=== PATIENT | male | born 1945 | race Caucasian/White ===

== ENCOUNTER 2016-10-18 07:48 | Emergency (ER) | payer MEDICARE, BC ==
[~2016-10-18] VITALS: Ht 177.8 cm; Wt 95.5 kg
[~2016-10-18 07:48] MED LIST: ANTIVERT 25MG25 MG PO; ASPIRIN BUFFERED; COREG 25MG25 MG/TAB PO; GLUCOPHAGE1000 MG PO; NEXIUM 20MG20 MG PO; NIACIN125 MG PO; PLAVIX 75MG TAB75 MG PO; ZESTRIL 20MG TA20 MG PO; ZOCOR 80MG80 MG PO; ZOFRAN ODT4 MG PO
[2016-10-18 08:25] LABS: BASO % 0.8 % (0.0-2.0); EOS % 0.4 % (0-4.0); GRAN # 3.9 (1.4-6.5); GRAN % 78.5 % (42.2-75.2); HEMATOCRIT 38.5 % (42.0-52.0); HEMOGLOBIN 13.6 g/dl (13.5-18.0); LYMPH # 0.6 (1.2-3.4); LYMPH % 11.8 % (20.0-51.0); MEAN CELL VOLUME 93 fl (80.0-100.0); MEAN CORPUSCULAR HEMOGLOBIN 33 pg (27.0-31.0); MEAN CORPUSCULAR HGB CONC 35 g/dl (33.0-37.0); MEAN PLATELET VOLUME 10.5 fl (7.4-10.4); MONO # 0.4 (0.1-0.6); MONO % 8.3 % (1.7-9.3); PLATELET COUNT 106 K/mm3 (130-400); RED BLOOD COUNT 4.12 M/mm3 (4.20-5.60); REDCELL DISTRIBUTION WIDTH-CV 12.5 % (11.5-14.5); WHITE BLOOD COUNT 4.9 K/mm3 (4.8-10.8)
[2016-10-18 08:42] LABS: INFLUENZA B NEGATIVE
[2016-10-18 08:45] LABS: ADJUSTED CALCIUM 9.1 mg/dL (8.4-10.2); ALBUMIN 3.4 gm/dL (3.5-5.0); BILIRUBIN,TOTAL 0.9 mg/dL (0.0-1.0); CALCIUM 8.6 mg/dL (8.4-10.2); CREATININE, serum 1.13 mg/dL (0.66-1.25); POTASSIUM 3.9 mmol/L (3.4-5.0); TOTAL PROTEIN 6.4 gm/dL (6.4-8.2)
[2016-10-18] MEDS ORDERED: VENTOLIN0.09 MG IH (09:08)
[2016-10-18] MEDS ORDERED: TAMIFLU 75MG75 MG PO (09:08)
[2016-10-18 09:25] VITALS: BP 131/88; PULSE 101; TEMP 98.6
[2016-10-18] MEDS ORDERED: XANAX 0.5MG0.5 MG PO ×2 (10:13→10:52)
== END 2016-10-18 10:54 | disposition home or self-care (01) ==
LOC: COL.ER 07:48
PROVIDERS: Emergency Medicine
DX: J10.1 Influenza due to other identified influenza virus with other respiratory manifestations (principal); F17.210 Nicotine dependence, cigarettes, uncomplicated; I25.10 Atherosclerotic heart disease of native coronary artery without angina pectoris; Z95.5 Presence of coronary angioplasty implant and graft; Z79.02 Long term (current) use of antithrombotics/antiplatelets
CPT/HCPCS: J1100; J1885; J7030

== ENCOUNTER → 2020-08-22 | Outpatient (CLI) | payer MEDICARE, BC ==
[~2020-08-22] VITALS: Ht 177.8 cm; Wt 95.2 kg
[~2020-08-22] MED LIST changes: +ASPIRIN E.C. 8181 MG PO; +GLUMETZA500 MG PO; +LIPITOR 40MG TA40 MG PO; +PRILOSEC 20MG20 MG PO; +TAMIFLU 75MG75 MG PO; +VENTOLIN0.09 MG IH; +XANAX 0.5MG0.5 MG PO; +ZOLOFT 100MG100 MG PO
[2020-08-22 12:57] VITALS: BP 230/124; PULSE 86
--- NOTE | 2020-08-22 13:05 | NUR ---
recheck bp 211/119.
--- NOTE | 2020-08-22 13:10 | NUR ---
pt returns to holding area pt was able to proceed with scan without anesthesia. Pt states listening to the music and the updates really helped and he was able to get through the scan. Pt getting dressed. 1320 Pt out to car per ambulation. Pts notified that he was finished and his increased bp, and him not having taken his morning meds for the last two days. Pt encouraged to take meds upon arrival home.
== END ==
LOC: COL.RAD 08-21 09:00
DX: M47.812 Spondylosis without myelopathy or radiculopathy, cervical region (principal); M48.02 Spinal stenosis, cervical region

== ENCOUNTER → 2021-01-21 | Outpatient (CLI) | payer MEDICARE, BC | LOC: COL.PUL 08:07 | DX: J45.41 Moderate persistent asthma with (acute) exacerbation (principal); F17.210 Nicotine dependence, cigarettes, uncomplicated ==

== ENCOUNTER 2021-04-11 12:59 | Emergency (ER) | payer MEDICARE, BC ==
[~2021-04-11] VITALS: Ht 177.8 cm; Wt 93.2 kg
[2021-04-11 13:55] LABS: BASO # 0.1 (0.0-0.2); BASO % 0.7 % (0.0-2.0); EOS # 0.2 (0.0-0.7); EOS % 2.4 % (0-4.0); GRAN # 4.7 (1.4-6.5); GRAN % 63.2 % (42.2-75.2); HEMATOCRIT 41.8 % (42.0-52.0); HEMOGLOBIN 14.1 g/dl (13.5-18.0); LYMPH # 1.9 (1.2-3.4); LYMPH % 25.8 % (20.0-51.0); MEAN CELL VOLUME 95 fl (80.0-100.0); MEAN CORPUSCULAR HEMOGLOBIN 32 pg (27.0-31.0); MEAN CORPUSCULAR HGB CONC 34 g/dl (33.0-37.0); MEAN PLATELET VOLUME 11.2 fl (7.4-10.4); MONO # 0.6 (0.1-0.6); MONO % 7.4 % (1.7-9.3); PLATELET COUNT 192 K/mm3 (130-400); REDCELL DISTRIBUTION WIDTH-CV 13.2 % (11.5-14.5)
[2021-04-11 14:09] LABS: ALANINE AMINOTRANSFERASE 15 U/L (4-49); ALKALINE PHOSPHATASE 63 U/L (50-136); ANION GAP 10 mmol/L (7-16); AST,SGOT 20 U/L (15-37); BILIRUBIN,TOTAL 0.4 mg/dL (0.0-1.0); BLOOD UREA NITROGEN 24 mg/dL (9-20); CARBON DIOXIDE 23 mmol/L (22-30); CHLORIDE 104 mmol/L (98-107); CREATININE, serum 1.67 (0.66-1.25); GLUCOSE 161 mg/dL (74-106); POTASSIUM 4.7 mmol/L (3.4-5.0); SODIUM 138 mmol/L (137-145); TOTAL PROTEIN 7.2 gm/dL (6.4-8.2)
[2021-04-11 14:25] LABS: TROPONIN-I < 0.012 ng/mL (0.000-0.035)
[2021-04-11 15:30] VITALS: BP 104/68; PULSE 63; TEMP 97.5
== END 2021-04-11 15:55 | disposition home or self-care (01) ==
LOC: COL.ER 12:59
PROVIDERS: Emergency Medicine
DX: N17.9 Acute kidney failure, unspecified (principal); R07.9 Chest pain, unspecified; I25.10 Atherosclerotic heart disease of native coronary artery without angina pectoris; I10 Essential (primary) hypertension; E78.5 Hyperlipidemia, unspecified; E11.9 Type 2 diabetes mellitus without complications; I25.2 Old myocardial infarction; F17.210 Nicotine dependence, cigarettes, uncomplicated; Z95.5 Presence of coronary angioplasty implant and graft; Z79.899 Other long term (current) drug therapy; Z79.82 Long term (current) use of aspirin; Z79.84 Long term (current) use of oral hypoglycemic drugs

== ENCOUNTER → 2021-04-30 | Outpatient (CLI) | payer MEDICARE, BC | LOC: COL.RAD 11:57 | DX: K80.20 Calculus of gallbladder without cholecystitis without obstruction (principal); N32.89 Other specified disorders of bladder ==

== ENCOUNTER → 2024-04-19 | Outpatient (CLI) | payer MEDICARE, BC | LOC: COL.RAD 13:32 | DX: Z12.2 Encounter for screening for malignant neoplasm of respiratory organs (principal); F17.210 Nicotine dependence, cigarettes, uncomplicated ==